=== PATIENT | female | born 1975 | race American Indian/Alaskan Native ===

== ENCOUNTER 2017-08-19 12:02 | Day surgery (SDC) | payer MEDICAID ==
[2017-08-14 10:01] VITALS: BMI 29.9
[2017-08-19 12:27] LABS: BASO # 0.05 K/mm3 (0.0-2.0); BASO % 0.5 % (0.0-3.0); EOS # 0.1 (0.0-0.7); EOS % 1.5 % (1.5-5.0); GRAN # 5.18 (1.4-6.5); GRAN % 54.1 % (50.0-68.0); HEMOGLOBIN 13.4 g/dL (12.0-16.0); LYMPH # 3.5 (1.2-3.4); LYMPH % 36.7 % (22.0-35.0); MEAN CELL VOLUME 86.4 fl (80.0-105.0); MEAN CORPUSCULAR HEMOGLOBIN 30.4 pg (25.0-35.0); MEAN CORPUSCULAR HGB CONC 35.2 g/dl (31.0-37.0); MEAN PLATELET VOLUME 9.5 fl (7.0-11.0); MONO # 0.7 (0.1-0.6); MONO % 7.2 % (1.0-6.0); RBC 4.41 10^6/uL (3.5-6.1); RED CELL DISTRIBUTION WIDTH 13.8 % (11.5-14.5); WHITE BLOOD COUNT 9.6 10^3/ul (4.5-11.0)
[2017-08-19 12:36] LABS: INR 1.03 (0.93-1.08); PARTIAL THROMBOPLASTIN TIME 29.6 Seconds (25.1-36.5); PROTHROMBIN TIME 11.8 SECONDS (9.4-12.5)
[2017-08-19 12:37] LABS: BLOOD UREA NITROGEN 10 mg/dL (7-21); CALCIUM 9.5 mg/dL (8.4-10.5); GFR AFRICAN-AMERICAN > 60; GFR NON-AFRICAN AMERICAN > 60
[2017-08-19] MEDS ORDERED: Midazolam 2 MG/2 ML VIAL ONE (14:09)
[2017-08-19] MEDS ORDERED: Lidocaine 1% Inj (20ml) ONE (14:10)
[2017-08-19] MEDS ORDERED: Oxycodone/Acetaminophen 5/325 mg Tab PO PRN (14:48)
[2017-08-19] MEDS ORDERED: Sodium Chloride 0.45% 1,000 ML IV SCH (15:00)
[2017-08-19 15:45] VITALS: RESP 20; TEMP 97.8; O2SAT 98
--- NOTE | 2017-08-19 16:03 | US ---
PROCEDURE: Ultrasound-guided right thyroid fine needle aspiration biopsy. CLINICAL HISTORY: Dominant 3-4 cm heterogeneous nodule extending off the lower pole of the right thyroid. Evaluate for malignancy PHYSICIAN(S): Dav Kincaid M.D. TECHNIQUE: The relative risks and indications for the procedure were explained to the patient and consent obtained. The patient was placed supine on the stretcher with the neck extended and preliminary sonography of the thyroid performed. This reveal 3-4 cm heterogeneous complex nodule extending exophytic Naldo off the lower aspect of the right thyroid. The neck was prepped and draped in the usual sterile fashion. Conscious sedation and monitoring were provided throughout the procedure by a nurse. 1% Xylocaine was used to anesthetize the skin and soft tissues at the access site. Three passes with a 22-gauge needle were performed under ultrasound guidance for fine needle aspiration of the 3-4 cm heterogeneous nodule in the right thyroid. The slides were reviewed by pathology and deemed adequate. The patient tolerated the procedure well. IMPRESSION: 1. Ultrasound guided fine needle aspiration of a 3-4 cm heterogeneousnodule in the right thyroid.
[2017-08-19 16:48] VITALS: BP 139/80; PULSE 66
== END 2017-08-19 17:00 | disposition home or self-care (01) ==
LOC: SDS 12:02
PROVIDERS: ATTEND Radiology Vascular & Interventional Radiology
DX: E04.1 Nontoxic single thyroid nodule (principal); I10 Essential (primary) hypertension
CPT/HCPCS: 10022; 36415; 80048; 85025; 85610; 85730; 88173; 88305; J2250; J2405; J3010; J7030